=== PATIENT | male | born 1995 | race Two or more races ===

== ENCOUNTER 2021-06-10 08:45 | Emergency (ER) | payer OTHER ==
[~2021-06-10] VITALS: Ht 185.4 cm; Wt 97.5 kg
[~2021-06-10 08:45] MED LIST: ANTIDEPRESSANT; Bactrim Ds Tab1 EACH PO; Crutch1 EACH MISC; ERYT.5TO RIGHTEYE; HYDR1TAB94 PO; HYDR25SUP PR; IBUP600 PO; Keflex500 MG PO; METPHE20 PO; METPRE4DP PO; Zovirax800 MG PO
[2021-06-10] MEDS ORDERED: ZOLOFT50 MG PO (09:08)
[2021-06-10] MEDS ORDERED: BUSPIRONE HCL10 M6 PO (09:08)
[2021-06-10 09:45] LABS: BASOPHILS ABSOLUTE AUTO 0.06 K/mm3 (0.00-0.23); BASOPHILS PERCENT AUTO 1 % (0-2); EOSINOPHILS ABSOLUTE AUTO 0.04 K/mm3 (0.00-0.68); EOSINOPHILS PERCENT AUTO 1 % (0-6); Hematocrit 40.9 % (37.0-53.0); Hemoglobin 14.1 g/dL (13.5-17.5); IMMATURE GRAN ABSOLUTE AUTO 0.02 K/mm3 (0.00-0.10); IMMATURE GRAN PERCENT AUTO 0 % (0-1); LYMPHOCYTES ABSOLUTE AUTO 2.39 K/mm3 (0.84-5.20); LYMPHOCYTES PERCENT AUTO 34 % (21-46); MONOCYTES ABSOLUTE AUTO 0.41 K/mm3 (0.16-1.47); MONOCYTES PERCENT AUTO 6 % (4-13); Mean Corpuscular HGB 30.5 pg (26.0-34.0); Mean Corpuscular HGB Conc 34.5 g/dL (31.5-36.5); Mean Corpuscular Volume 89 fL (80-100); Mean Platelet Volume 11.2 fL (9.1-12.4); NEUTROPHILS PERCENT AUTO 58 % (41-73); Platelet Count 198 K/mm3 (150-400); RDW Coefficient Variation 12.1 % (11.7-14.2); RDW Standard Deviation 39.1 fL (35.1-46.3); Red Blood Cell Count 4.62 M/mm3 (4.30-5.90); White Blood Cell Count 7.02 K/mm3 (4.00-11.30)
[2021-06-10 09:50] LABS: Anion Gap 4 mmol/L (6-16); Blood Urea Nitrogen 10 mg/dL (8-24); Bun/Creatinine Ratio 12.2 (12.0-20.0); CO2, Blood 28 mmol/L (21-32); Calcium, Blood 8.7 mg/dL (8.5-10.1); Chloride, Blood 108 mmol/L (98-108); Creatinine, Blood 0.82 mg/dL (0.60-1.20); Glomerular Filtration Rate >60 (60-); Glucose, Blood 91 mg/dL (70-99); Potassium, Blood 3.9 mmol/L (3.5-5.5); Sodium, Blood 140 mmol/L (136-145)
[2021-06-10] MEDS ORDERED: NAPR500 PO (11:16)
== END 2021-06-10 12:12 | disposition home or self-care (01) ==
LOC: ER 08:45
PROVIDERS: Emergency Medicine
DX: R07.9 Chest pain, unspecified (principal); Z79.899 Other long term (current) drug therapy; J44.9 Chronic obstructive pulmonary disease, unspecified; Z87.891 Personal history of nicotine dependence
CPT/HCPCS: 36415; 71045; 80048; 84484; 85025; 93005; 93010; 96374; 99285-25; J1885

== ENCOUNTER 2022-02-23 10:27 | Emergency (ER) | payer OTHER ==
[~2022-02-23] VITALS: Ht 188 cm; Wt 97.5 kg
[~2022-02-23 10:27] MED LIST changes: +BUSPIRONE HCL10 M6 PO; +NAPR500 PO; +ZOLOFT50 MG PO
== END 2022-02-23 12:40 | disposition left against medical advice (07) ==
LOC: ER 10:27
DX: K08.89 Other specified disorders of teeth and supporting structures (principal); Z79.899 Other long term (current) drug therapy; Z53.21 Procedure and treatment not carried out due to patient leaving prior to being seen by health care provider
CPT/HCPCS: 99281

== ENCOUNTER 2023-09-13 21:50 | Emergency (ER) | payer OTHER ==
[~2023-09-13] VITALS: Ht 188 cm; Wt 112.5 kg
[2023-09-13 21:53] VITALS: BP 139/83
[2023-09-13] MEDS ORDERED: HYDPAM50 PO (23:36)
== END 2023-09-13 23:45 | disposition home or self-care (01) ==
LOC: ER 21:50
DX: F41.1 Generalized anxiety disorder (principal); J44.9 Chronic obstructive pulmonary disease, unspecified; F17.220 Nicotine dependence, chewing tobacco, uncomplicated
CPT/HCPCS: 71046

== ENCOUNTER 2023-09-19 22:07 | Emergency (ER) | payer OTHER ==
[~2023-09-19] VITALS: Ht 188 cm; Wt 111.1 kg
[~2023-09-19 22:07] MED LIST changes: +HYDPAM50 PO
[2023-09-19 22:20] VITALS: BP 125/80
[2023-09-19] MEDS ORDERED: Vistaril25 MG PO (22:27)
== END 2023-09-19 22:31 | disposition home or self-care (01) ==
LOC: ER 22:07
DX: F41.9 Anxiety disorder, unspecified (principal); Z76.0 Encounter for issue of repeat prescription; J44.9 Chronic obstructive pulmonary disease, unspecified; Z87.891 Personal history of nicotine dependence
CPT/HCPCS: 99283